=== PATIENT | female | born 1990 | race Caucasian/White ===

== ENCOUNTER 2019-02-02 10:56 | Day surgery (SDC) | payer MEDICAID ==
[~2019-02-02] VITALS: Ht 165.1 cm; Wt 83.0 kg
[2019-02-02 11:11] VITALS: BP_SYST 110
--- NOTE | 2019-02-02 11:17 | NUR ---
Patient to ER bed 7 to gown for evaluation. Side rails up. Report given to Janeen CHANG.
--- NOTE | 2019-02-02 11:25 | NUR ---
Facundo muhammadsandy in [facility] - 02/02/19 at 1222 by SDEDTD Patient presented to from Dr. Valencia office for IV line and same day surgery admission. Patient A&Ox4, afebrile, denies pain , denies N/V/D, ambulatory to ER. Gonzalez arrived with arminda
--- NOTE | 2019-02-02 11:26 | NUR ---
Facundo himanshu in [facility] - 02/02/19 at 1222 by SDEDTD Patient states she is [address] Valencia office patient has ", no fetus"
--- NOTE | 2019-02-02 11:35 | NUR ---
Patient presented to from Dr. Valencia office for vaginal bleeding & possible D&C. Patient A&Ox4, afebrile, denies pain , denies N/V/D, ambulatory to ER. Pateint arrived with . Patient states she is [address] Valencia office patient has ", no fetus"
--- NOTE | 2019-02-02 11:35 | NUR ---
Note himanshu in EDM - 02/02/19 at 1224 by SDEDTD Patient presented to from Dr. Valencia office for vaginal bleeding & possible DNC. Patient A&Ox4, afebrile, denies pain , denies N/V/D, ambulatory to ERJordan Gonzalez arrived with . Patient states she is [address] Valencia office patient has ", no fetus"
[2019-02-02] MEDS ORDERED: NACL 0.9% 1,000 ML IV ONE (11:38)
--- NOTE | 2019-02-02 12:26 | NUR ---
REPORT TO MERRY CHANG
--- NOTE | 2019-02-02 12:48 | NUR ---
Patient will be admitted to care of Dr. Valencia. Admitted to Outpatient Surgery unit. Will go to room OR. Summary report printed. Report will be given at bedside.
[2019-02-02] MEDS ORDERED: ONDANSETRON HCL 4 MG/2 ML VIAL IVP PRN ×2 (13:45→14:15)
[2019-02-02] MEDS ORDERED: fentaNYL CITRATE/PF 100 MCG/2 ML AMP IVP PRN ×2 (13:45)
[2019-02-02] MEDS ORDERED: LR 1,000 ML IV.SOLN IV ONE (13:50)
[2019-02-02] MEDS ORDERED: MIDAZOLAM HCL 5 MG/ML VIAL (VERSED) IV ONE (13:50)
[2019-02-02] MEDS ORDERED: fentaNYL CITRATE/PF 100 MCG/2 ML AMP ONE (13:50)
[2019-02-02] MEDS ORDERED: NS IRRIG SOLN 1000 ML IR ONE (13:50)
[2019-02-02] MEDS ORDERED: PROPOFOL 200MG/ 20ML VIAL (DIPRIVAN) IV ONE (13:50)
[2019-02-02] MEDS ORDERED: SEVOFLURANE 15 MIN GAS INH ONE (13:50)
[2019-02-02] MEDS ORDERED: HYDROcodone/ACETAMIN 5-325 MG TAB (NORCO/ VICODIN) PO PRN (14:15)
[2019-02-02] MEDS ORDERED: HYDROcodone/ACETAMIN 5-325 MG TAB (NORCO/ VICODIN) ONE (15:00)
[2019-02-02 15:50] VITALS: BP_SYST 106
== END 2019-02-02 15:40 | disposition home or self-care (01) ==
LOC: SED 10:56 → SPU 14:09 → UNDOADMOB 14:09 → SED 14:10
PROVIDERS: ATTEND Obstetrics & Gynecology
DX: O02.1 Missed abortion (principal)
CPT/HCPCS: 59820; 88305; J2250; J2704; J3010; J7030; J7120